=== PATIENT | male | born 1970 | race Caucasian/White ===

== ENCOUNTER 2024-11-14 23:42 | Inpatient (IN) | payer SELFPAY ==
[~2024-11-14] VITALS: Ht 185.4 cm; Wt 130.0 kg
[~2024-11-14 23:42] MED LIST: AMLO1TAB23; CLON0.1T; LISI20TA56 PO
[2024-11-15] VITALS (8 sets, daily range): BP systolic 134–157; BP diastolic 90–106; PULSE 86–102; RESP 16–20; TEMP 97.8–98.2; O2SAT 91–95
--- NOTE | 2024-11-15 | ED.PDOC ---
GI ASSESSMENT HPI Comments 54-year-old male who came to ER for abdominal pain. Patient has history of hypertension, diabetes, small bowel obstruction, diverticulitis, status post multiple bowel resections performed as this facility.. For the past few hours, he has complaining of diffuse abdominal pain with nausea. Denies any changes in bowel habits. Patient was hypertensive on arrival. Chief Complaint: Abdominal Pain Time Seen by MD: 00:00 Primary Care Provider: sage Nagy Notes: Nurses Notes Allergies: Coded Allergies: Acetaminophen (Verified Allergy, Unknown, 06/07/14) Hydrocodone (Verified Allergy, Unknown, 06/07/14) Home Meds Reported Medications [Amlodipine Besy10 Mg] (Amlodipine Besylate) 10 MG TAB No Conflict Check, MG 11/06/12 [Clonidine Hcl0.1 Mg] (Clonidine Hcl) 0.1 MG TAB No Conflict Check, MG 11/06/12 Lisinopril (Lisinopril) 20 Mg Tab, PO DAILY 03/16/11 Information Source: Patient Mode of Arrival: EMS Timing: Hours Duration: Since onset Prehospital treatment: None Quality: Aching Vomitus: None Stool: Normal Severity: Moderate Recent: None Recent Hx of: Abdominal Surgery, Other (Diverticular disease) Pain Location: Diffuse Modifying Factors: Nothing Associated sign and symptoms: Nausea, Abdominal Pain Past Medical History PAST MEDICAL HISTORY: COPD, High Lipids, HTN Past Medical History (Other): Diverticulitis. Small bowel obstruction Surgical History: Cholecystectomy, Hernia Repair Surgical History (Other): Bowel resection Family History Family History: Reviewed,noncontributory to illness Social History Smoker: Cigarettes Alcohol: Rarely Drugs: Denies Drug Use Lives In: Home Constitutional: denies: chills, diaphoresis, fatigue, fever, malaise, sweats, weakness, others EENTM: denies: blurred vision, double vision, ear bleeding, ear discharge, ear drainage, ear pain, ear ringing, eye pain, eye redness, hearing loss, mouth pain, mouth swelling, nasal discharge, nose bleeding, nose congestion, nose pain, photophobia, tearing, throat pain, throat swelling, voice changes, others Respiratory: denies: cough, hemoptysis, orthopnea, SOB at rest, shortness of breath, SOB with excertion, stridor, wheezing, others Cardiovascular: denies: chest pain, dizzy spells, diaphoresis, Dyspnea on exertion, edema, irregular heart beat, left arm pain, lightheadedness, palpitations, PND, syncope, others Gastrointestinal: reports: abdominal pain, nausea; denies: abdomen distended, blood streaked bowels, constipated, diarrhea, dysphagia, difficulty swallowing, hematemesis, melena, poor appetite, poor fluid intake, rectal bleeding, rectal pain, vomiting, others Genitourinary: denies: burning, dysuria, flank pain, frequency, hematuria, incontinence, penile discharge, penile sore, pain, testicle pain, testicle swelling, urgency, others Neurological: denies: dizziness, fainting, headache, left sided numbness, left sided weakness, numbness, paresthesia, pre-existing deficit, right sided numbness, right sided weakness, seizure, speech problems, tingling, tremors, weakness, others Musculoskeletal: denies: back pain, gout, joint pain, joint swelling, muscle pain, muscle stiffness, neck pain, others Integumetry: denies: bruises, change in color, change in hair/nails, dryness, laceration, lesions, lumps, rash, wounds, others Allergic/Immunocompromised: denies: Difficulty Healing, Frequent Infections, H lida, Itching, others Hematologic/Lymphatic: denies: anemia, blood clots, easy bleeding, easy bruising, swollen glands, others Endocrine: denies: excessive hunger, excessive sweating, excessive thirst, excessive urination, flushing, intolerance to cold, intolerance to heat, unexplained weight gain, unexplained weight loss, others Psychiatric: denies: anxiety, bipolar disorder, depression, hopeless, panic disorder, schizophrenia, sleepless, suicidal, others Physical Exam Exam Comments Patient appears to be in poor overall health in his morbidly obese General Appearance: Moderate Distress (Due to diffuse abdominal pain concerns.), Obese HEENT: Normal ENT Inspection, Pharynx Normal, TMs Normal Neck: Full Range of Motion, Non-Tender, Normal, Normal Inspection Respiratory: Chest Non-Tender, Lungs Clear, No Accessory Muscle Use, No Respiratory Distress, Normal Breath Sounds Cardiovascular: No Edema, No JVD, No Murmur, No Gallop, Normal Peripheral Pulses, Regular Rate/Rhythm Breast Exam: Deferred Gastrointestinal: Other (Diffuse abdominal pain that was difficult to assess due to body habitus. Abdomen was mildly rigid but may be his body habitus type. Patient states pain throughout. No pulsatile masses appreciated.) Genitalia: Deferred Pelvic: Deferred Rectal: Deferred Extremities: No calf tenderness, Normal capillary refill, Normal inspection, Normal range of motion, Non-tender, No pedal edema Musculoskeletal : Apperance: Normal Neurologic: Alert, No Motor Deficits, Normal Affect, Normal Mood, No Sensory Deficits Cerebellar Function: Normal Reflexes: Normal Skin: Dry, Normal Color, Warm Lymphatic: No Adenopathy Was a procedure done? Was a procedure done?: No GI differential Dx Differential Diagnosis: Constipation, Diverticular disease, Gastritis/PUD, Gastroenteritis, Inflammatory BD, Ischemic Bowel, Pancreatitis, UTI, Urolithiasis, Food Poisoning X-Ray, Labs, Meds, VS Vital Signs Date Time Temp Pulse Resp B/P (MAP) Pulse Ox O2 Delivery O2 Flow Rate FiO2 11/15/24 01:28 101 14 145/95 11/15/24 01:00 103 14 145/95 11/15/24 00:30 94 11/14/24 23:52 91 11/14/24 23:45 98.1 93 18 167/109 (128) 97 Lab Test 11/15/24 00:59 11/14/24 23:59 Range/Units Troponin I High Sensitivity 3 L 3 L </=54 ng/L White Blood Count 15.0 H 4.4-10.8 10^3/uL Red Blood Count 6.17 H 4.5-5.90 10^6/uL Hemoglobin 19.6 H 13.5-17.5 g/dL Hematocrit 56.1 H 41.0-53.0 % Mean Corpuscular Volume 91.0 80.0-100.0 fL Mean Corpuscular Hemoglobin 31.8 28.0-32.0 pg Mean Corpuscular Hemoglobin Concent 34.9 32.0-36.0 g/dL Red Cell Distribution Width 13.3 11.8-14.3 % Platelet Count 260 140-450 10^3/uL Mean Platelet Volume 8.8 6.9-10.8 fL Neutrophils (%) (Auto) 80.7 H 37.0-80.0 % Lymphocytes (%) (Auto) 10.2 10.0-50.0 % Monocytes (%) (Auto) 7.8 0.0-12.0 % Eosinophils (%) (Auto) 0.9 0.0-7.0 % Basophils (%) (Auto) 0.4 0.0-2.0 % Neutrophils # (Auto) 12.1 H 1.6-8.6 10 ^3/uL Lymphocytes # (Auto) 1.5 0.4-5.4 10 ^3/uL Monocytes # (Auto) 1.2 0-1.3 10 ^3/uL Eosinophils # (Auto) 0.1 0-0.8 10 ^3/uL Basophils # (Auto) 0.1 0-0.2 10 ^3/uL Nucleated Red Blood Cells 0.0 % Sodium Level 133 L 136-145 mmol/L Potassium Level 4.7 3.5-5.1 mmol/L Chloride Level 98 98-107 mmol/L Carbon Dioxide Level 27 20-31 mmol/L Anion Gap 8 5-15 Blood Urea Nitrogen 21 9-23 mg/dL Creatinine 1.13 0.700-1.30 mg/dL Glomerular Filtration Rate Calc 78 >90 mL/min BUN/Creatinine Ratio 18.6 10.0-20.0 Serum Glucose 395 H 74-106 mg/dL Lactic Acid Level 1.2 0.4-2.0 mmol/L Calcium Level 10.4 8.7-10.4 mg/dL Total Bilirubin 0.7 0.2-1.0 mg/dL Aspartate Amino Transferase (AST) 16 13-40 U/L Alanine Aminotransferase (ALT) 24 7-40 U/L Alkaline Phosphatase 122 H 46-116 U/L Total Protein 6.7 5.7-8.2 g/dL Albumin 4.2 3.2-4.8 g/dL Lipase 24 12-53 U/L Current Medications Medications (Trade) Dose Ordered Sig/Roxie Route Start Time Stop Time Status Last Admin Hydromorphone HCl (Dilaudid Injection) 1 mg ONCE ONCE IV 11/15/24 00:00 11/15/24 00:01 NM 11/15/24 01:00 Ondansetron HCl (Zofran) 4 mg ONCE ONCE IV 11/15/24 01:00 11/15/24 01:01 DC 11/15/24 01:28 Amoxicillin/ Clavulanate Potassium (Augmentin Tablet) 875 mg ONCE ONCE PO 11/15/24 01:30 11/15/24 01:31 DC 11/15/24 01:30 Sodium Chloride 1,000 ml @ 200 mls/hr Q5H ONCE IV 11/15/24 01:30 11/15/24 06:29 11/15/24 01:30 Diagnostic Imaging Report : [id number] Signed PATIENT: DEIRDRE HINTON ACCT: [id number] UNIT: [id number] : 1970 LOC: ER ROOM / BED: / AGE / SEX: 54 / M ADM STATUS: REG ER SERVICE [id number] ORDERING PHYSICIAN: LOKESH HOLMAN PAC PROCEDURE(s): ABPL - CT AB PEL WO CON-NO ORAL OR IV REASON: Diffuse abdominal pain ORDER NUMBER(s): [id number], ACCESSION NUMBER(s): [id number] Exam: CT CT AB PEL WO CON-NO ORAL OR IV History: Diffuse abdominal pain Comparison Study: None available at time of dictation. Technique: Multidetector spiral CT of the abdomen was performed from lung bases to pubic symphysis. Imaging was performed without IV contrast. Axial, coronal and sagittal multiplanar reformats were obtained from the axial data set by the technologist. Radiation Dose : 1. Abdomen/Pelvis: CTDIvol 23 mGy, DLP 1683 mGy*cm. Findings: Evaluation of solid organs is limited due to lack of intravenous contrast use. Lung Bases: No acute or significant lung base finding. Normal heart size. No pleural or pericardial effusion. Liver: The liver is normal in size. No focal lesions. Gallbladder and Biliary Tree: Unremarkable Spleen: Unremarkable Pancreas: The pancreas is grossly normal in appearance. Adrenal Glands: Unremarkable Kidneys: Kidneys are grossly normal without calculi or hydronephrosis. Bladder: Grossly unremarkable for degree of distention. Bowel: The stomach is grossly normal in appearance. Postsurgical changes of the sigmoid colon. Multiple fluid-filled loops of small bowel measuring up to 3.6 cm. No definitive transition point. The appendix is not visualized; however, no secondary findings of acute appendicitis identified. Ascites: Absent Lymphadenopathy: No mesenteric, retroperitoneal or periportal lymphadenopathy. Abdominal Wall and Mesentery: Unremarkable. Vasculature: The visualized abdominal aorta is normal in size and caliber. Evaluation of abdominal and pelvic vessels is limited due to lack of intravenous contrast. Pelvic Organs: Unremarkable Musculoskeletal: No aggressive focal bony lesions, acute fractures or dislo cation. IMPRESSION: Multiple distended fluid-filled loops of small bowel measuring up to 3.6 cm without definitive transition point. Findings are concerning for possible small bowel obstruction versus viral enteritis END IMPRESSION: ATED BY: IRENE MERCADO DO DICTATED DATE/TIME: 11/15/24155 SIGNED BY: IRENE MERCADO DO SIGNED DATE/TIME: 11/15/24155 CC: [place] [id number]. He has a small bowel obstruction. The patient was placed on Flagyl and Levaquin. NG tube was placed. Dr. Villar was called. The patient be admitted to the hospitalist for further evaluation and care. X-Ray, Labs, Meds, VS Comment Urinalysis and CT studies were pending at time of this note. Serum laboratories revealed a leukocytosis, hyponatremia and significant hyperglycemia. Patient appears to be suffering from a diverticulitis event. Imaging studies will be reviewed by Dr. Friedman when returned, but patient will be admitted for intractable abdominal pain management she as well as continued evaluation of his probable diverticulitis event. Time of 1ST Reevaluation: :54 Reevaluation 1ST: Improved Consultation: PCP Patient Education/Counseling: Diagnosis, Treatment Family Education/Counseling: Diagnosis, Treatment, No Family Present Departure 1 Departure Time of Disposition: 01:54 Impression: Primary Impression: Intractable abdominal pain Additional Impressions: Small bowel obstruction Enteritis Disposition: ADMITTED INPATIENT Admit to: [facility] Condition: Guarded Discharged With: Self Critical Care Note Critical Care Time?: No Stability Stability form required: No Heart Score Heart Score: Heart Score Response (Comments) Value History N/A 0 EKG N/A 0 Age N/A 0 Risk Factors N/A 0 Troponin N/A 0 Total 0 I personally scribed for LOKESH HOLMAN PAC ([email or web address]) on 11/15/24 at 00:00. Electronically submitted by Renzo Green ([email or web address]). LOKESH HOLMAN Nov 15, 2024 00:00 BUSTER FRIEDMAN MD Nov 15, 2024 02:34
[2024-11-15 00:30] LABS: Basophils # (auto) 0.1 10 ^3/uL (0-0.2); Eosinophils # (auto) 0.1 10 ^3/uL (0-0.8); Eosinophils % (auto) 0.9 % (0.0-7.0); Hemoglobin 19.6 g/dL (13.5-17.5); Lymphocytes # (auto) 1.5 10 ^3/uL (0.4-5.4); Lymphocytes % (auto) 10.2 % (10.0-50.0)
[2024-11-15 00:31] LABS: Basophils % (auto) 0.4 % (0.0-2.0); Mean Corpuscular Hemoglobin 31.8 pg (28.0-32.0); Mean Corpuscular Hgb Conc. 34.9 g/dL (32.0-36.0); Monocytes # (auto) 1.2 10 ^3/uL (0-1.3); Monocytes % (auto) 7.8 % (0.0-12.0); Neutrophils # (auto) 12.1 10 ^3/uL (1.6-8.6); Neutrophils % (auto) 80.7 % (37.0-80.0); Platelet Count (auto) 260 10^3/uL (140-450); Red Blood Cells 6.17 10^6/uL (4.5-5.90); Red Cell Distribution Width 13.3 % (11.8-14.3)
[2024-11-15 00:33] LABS: Hematocrit 56.1 % (41.0-53.0)
[2024-11-15 00:35] LABS: Alanine Aminotransferase 24 U/L (7-40); Albumin 4.2 g/dL (3.2-4.8); Anion Gap 8 (5-15); Aspartate Aminotransferase 16 U/L (13-40); BUN/Creatinine Ratio 18.6 (10.0-20.0); Bilirubin, Total 0.7 mg/dL (0.2-1.0); Blood Urea Nitrogen 21 mg/dL (9-23); Calcium 10.4 mg/dL (8.7-10.4); Carbon Dioxide 27 mmol/L (20-31); Chloride 98 mmol/L (98-107); Lipase 24 U/L (12-53); Potassium 4.7 mmol/L (3.5-5.1); Sodium 133 mmol/L (136-145); Total Protein 6.7 g/dL (5.7-8.2)
[2024-11-15 00:36] LABS: Alkaline Phosphatase 122 U/L (46-116); Glucose 395 mg/dL (74-106)
[2024-11-15] MEDS: HYDROmorphone HCL 2 MG/ML VL/or syr IV ONE ×3 (01:00→02:15)
[2024-11-15] MEDS: ONDANSETRON HCL 4 MG/2 ML VIAL ONE (01:27)
[2024-11-15] MEDS: ONDANSETRON HCL 4 MG/2 ML VIAL IV ONE ×2 (01:28→05:35)
[2024-11-15] MEDS: SODIUM CHLORIDE 0.9% 1,000 ML IV ONE (01:30)
[2024-11-15] MEDS: AMOXICILLIN/CLAVUL 875 MG TAB PO ONE (01:30)
--- NOTE | 2024-11-15 01:59 | DVH ---
Exam: CT CT AB PEL WO CON-NO ORAL OR IV History: Diffuse abdominal pain Comparison Study: None available at time of dictation. Technique: Multidetector spiral CT of the abdomen was performed from lung bases to pubic symphysis. Imaging was performed without IV contrast. Axial, coronal and sagittal multiplanar reformats were ob tained from the axial data set by the technologist. Radiation Dose : 1. Abdomen/Pelvis: CTDIvol 23 mGy, DLP 1683 mGy*cm. Findings: Evaluation of solid organs is limited due to lack of intravenous contrast use. Lung Bases: No acute or significant lung base finding. Normal heart size. No pleural or pericardial effusion. Liver: The liver is normal in size. No focal lesions. Gallbladder and Biliary Tree: Unremarkable Spleen: Unremarkable Pancreas: The pancreas is grossly normal in appearance. Adrenal Glands: Unremarkable Kidneys: Kidneys are grossly normal without calculi or hydronephrosis. Bladder: Grossly unremarkable for degree of distention. Bowel: The stomach is grossly normal in appearance. Postsurgical changes of the sigmoid colon. Multip le fluid-filled loops of small bowel measuring up to 3.6 cm. No definitive transition point. The ap pendix is not visualized; however, no secondary findings of acute appendicitis identified. Ascites: Absent Lymphadenopathy: No mesenteric, retroperitoneal or periportal lymphadenopathy. Abdominal Wall and Mesentery: Unremarkable. Vasculature: The visualized abdominal aorta is normal in size and caliber. Evaluation of abdominal a nd pelvic vessels is limited due to lack of intravenous contrast. Pelvic Organs: Unremarkable Musculoskeletal: No aggressive focal bony lesions, acute fractures or dislocation. IMPRESSION: Multiple distended fluid-filled loops of small bowel measuring up to 3.6 cm without definitive transi tion point. Findings are concerning for possible small bowel obstruction versus viral enteritis END IMPRESSION:
[2024-11-15] MEDS: metroNIDAZOLE 500MG/100ML 100 ML IV ONE ×2 (02:45→10:55)
[2024-11-15] MEDS: levoFLOXacin 500MG 100 ML IV ONE (02:45)
[2024-11-15] MEDS: INSULIN LISPRO (HUMAN) 100 UNITS/ML ML SC ONE (02:52)
[2024-11-15 03:52] LABS: Urine Bacteria None Seen /hpf (None Seen)
[2024-11-15 04:29] LABS: Urine Blood Negative /uL (Negative); Urine Clarity Clear (Clear); Urine Color Light-Yellow (Yellow); Urine Protein, UAD 2+ (Negative); Urine Specific Gravity 1.037 (1.001-1.035); Urine Squamous Epithelial Cell None Seen /hpf (<5); Urine Urobilinogen Normal (Negative); Urine WBC < 1 /HPF (0-3)
[2024-11-15] MEDS: cefTRIAXone 1GM/50ML D5W 50 ML IV ONE (05:30)
[2024-11-15] MEDS: HYDROMORPHONE HCL 1 MG/ML INJ IV ONE (05:33)
--- NOTE | 2024-11-15 07:37 | DVH ---
CHEST RADIOGRAPH Indication: NG TUBED PLACEMENT Technique: Single frontal view of the chest was obtained Comparison: None FINDINGS: Lines and Tubes: Nasogastric tube tip in the stomach Lungs: No focal consolidation. Pleura: No effusion. No pneumothorax. Cardiomediastinal contours: Unremarkable Bones: No acute osseous abnormality. IMPRESSION: No acute cardiopulmonary disease.
--- NOTE | 2024-11-15 10:28 | DVHHP2 ---
History of Present Illness Reason for Visit: Abdominal pain History of Present Illness This 54-year-old male presents in the ED with a chief complaint of abdominal pain. The patient with significant medical history of abdominal surgeries, hernias, diverticulitis, colostomy, SBO, reports abdominal pain associated with nausea and vomiting started yesterday. The patient denies fever, chills, hematemesis, constipation, diarrhea, or melena. Past medical history of hypertension, COPD, hyperlipidemia, obesity, and ex tobacco use Past Medical History As stated in HPI Past Surgical History Cholecystectomy Hernia repair Resection Family History Reviewed, non-contributory to the management of this case. Past Social History The patient lives at home, denies smoking, alcohol or illicit drugs abuse. Review of Systems Constitutional: Yes: Malaise; No: Fever, Chills, Sweats, Weakness, Other Eyes: No: Pain, Vision change, Conjunctivae inflammation, Eyelid inflammation, Other, Redness ENT: No: Ear pain, Ear discharge, Nose pain, Nose discharge, Nose congestion, Mouth pain, Mouth swelling, Throat pain, Throat swelling, Other Respiratory: No: Cough, Dry, Shortness of breath, SOB with excertion, Wheezing, Hemoptysis, Pleuritic Pain, Sputum, Wheezing, Other Cardiovascular: No: Chest Pain, Palpitations, Orthopnea, Paroxysmal Noc. Dyspnea, Edema, Lt Headedness, Other Gastrointestinal: Nausea, Vomiting, Abdominal Pain; No: Diarrhea, Constipation, Melena, Hematochezia, Other Genitourinary: No Dysuria, No Frequency, No Incontinence, No Hematuria, No Retention, No Other Musculoskeletal: No: other, neck pain, shoulder pain, arm pain, back pain, hand pain, leg pain, foot pain Skin: No: Rash, Lesions, Jaundice, Bruising, Other Allergies: Coded Allergies: Acetaminophen (Verified Allergy, Unknown, 06/07/14) Hydrocodone (Verified Allergy, Unknown, 06/07/14) Exam Vital Signs Vital Signs Date Time Temp Pulse Resp B/P (MAP) Pulse Ox O2 Delivery O2 Flow Rate FiO2 11/15/24 06:05 98 14 143/84 11/14/24 23:45 98.1 97 General Appearance: Alert, Oriented X3, Cooperative, mild distress HEENT: Atraumatic, EOMI, Mucous membr. moist/pink Respiratory: Clear to auscultation, Normal air movement Cardiovascular: Regular rate, Normal S1, Normal S2 Abdominal: Soft, Other (Tenderness in palpation) Extremities: No clubbing, No cyanosis, No edema, Normal pulses Skin: No rashes, No breakdown, No significant lesion Neuro: Normal gait, Normal speech, Strength at 5/5 X4 ext Psych/Mental Status: Mental status NL Labs/Xrays Labs Test 11/15/24 01:34 11/15/24 00:59 11/14/24 23:59 Range/Units Urine Color Light-yellow Yellow Urine Clarity Clear Clear Urine pH 6.0 5.0-9.0 Urine Specific Pratts 1.037 H 1.001-1.035 Urine Protein 2+ H Negative Urine Ketones 1+ H Negative Urine Blood Negative Negative /uL Urine Nitrite Negative Negative Urine Bilirubin Negative Negative Urine Urobilinogen Normal Negative mg/dL Urine Leukocyte Esterase Negative Negative /uL Urine RBC <1 0 - 3 /hpf Urine Microscopic WBC < 1 0-3 /HPF Urine Squamous Epithelial Cells None seen <5 /hpf Urine Bacteria None seen None Seen /hpf Urine Glucose 4+ H Normal mg/dL Troponin I High Sensitivity 3 L </=54 ng/L White Blood Count 15.0 H 4.4-10.8 10^3/uL Red Blood Count 6.17 H 4.5-5.90 10^6/uL Hemoglobin 19.6 H 13.5-17.5 g/dL Hematocrit 56.1 H 41.0-53.0 % Mean Corpuscular Volume 91.0 80.0-100.0 fL Mean Corpuscular Hemoglobin 31.8 28.0-32.0 pg Mean Corpuscular Hemoglobin Concent 34.9 32.0-36.0 g/dL Red Cell Distribution Width 13.3 11.8-14.3 % Platelet Count 260 140-450 10^3/uL Mean Platelet Volume 8.8 6.9-10.8 fL Neutrophils (%) (Auto) 80.7 H 37.0-80.0 % Lymphocytes (%) (Auto) 10.2 10.0-50.0 % Monocytes (%) (Auto) 7.8 0.0-12.0 % Eosinophils (%) (Auto) 0.9 0.0-7.0 % Basophils (%) (Auto) 0.4 0.0-2.0 % Neutrophils # (Auto) 12.1 H 1.6-8.6 10 ^3/uL Lymphocytes # (Auto) 1.5 0.4-5.4 10 ^3/uL Monocytes # (Auto) 1.2 0-1.3 10 ^3/uL Eosinophils # (Auto) 0.1 0-0.8 10 ^3/uL Basophils # (Auto) 0.1 0-0.2 10 ^3/uL Nucleated Red Blood Cells 0.0 % Sodium Level 133 L 136-145 mmol/L Potassium Level 4.7 3.5-5.1 mmol/L Chloride Level 98 98-107 mmol/L Carbon Dioxide Level 27 20-31 mmol/L Anion Gap 8 5-15 Blood Urea Nitrogen 21 9-23 mg/dL Creatinine 1.13 0.700-1.30 mg/dL Glomerular Filtration Rate Calc 78 >90 mL/min BUN/Creatinine Ratio 18.6 10.0-20.0 Serum Glucose 395 H 74-106 mg/dL Lactic Acid Level 1.2 0.4-2.0 mmol/L Calcium Level 10.4 8.7-10.4 mg/dL Total Bilirubin 0.7 0.2-1.0 mg/dL Aspartate Amino Transferase (AST) 16 13-40 U/L Alanine Aminotransferase (ALT) 24 7-40 U/L Alkaline Phosphatase 122 H 46-116 U/L Total Protein 6.7 5.7-8.2 g/dL Albumin 4.2 3.2-4.8 g/dL Lipase 24 12-53 U/L PROCEDURE(s): ABPL - CT AB PEL WO CON-NO ORAL OR IV REASON: Diffuse abdominal pain ORDER NUMBER(s): [id number], ACCESSION NUMBER(s): [id number] Exam: CT CT AB PEL WO CON-NO ORAL OR IV History: Diffuse abdominal pain Comparison Study: None available at time of dictation. Technique: Multidetector spiral CT of the abdomen was performed from lung bases to pubic symphysis. Imaging was performed without IV contrast. Axial, coronal and sagittal multiplanar reformats were obtained from the axial data set by the technologist. Radiation Dose : 1. Abdomen/Pelvis: CTDIvol 23 mGy, DLP 1683 mGy*cm. Findings: Evaluation of solid organs is limited due to lack of intravenous contrast use. Lung Bases: No acute or significant lung base finding. Normal heart size. No pleural or pericardial effusion. Liver: The liver is normal in size. No focal lesions. Gallbladder and Biliary Tree: Unremarkable Spleen: Unremarkable Pancreas: The pancreas is grossly normal in appearance. Adrenal Glands: Unremarkable Kidneys: Kidneys are grossly normal without calculi or hydronephrosis. Bladder: Grossly unremarkable for degree of distention. Bowel: The stomach is grossly normal in appearance. Postsurgical changes of the sigmoid colon. Multiple fluid-filled loops of small bowel measuring up to 3.6 cm. No definitive transition point. The appendix is not visualized; however, no secondary findings of acute appendicitis identified. Ascites: Absent Lymphadenopathy: No mesenteric, retroperitoneal or periportal lymphadenopathy. Abdominal Wall and Mesentery: Unremarkable. Vasculature: The visualized abdominal aorta is normal in size and caliber. Evaluation of abdominal and pelvic vessels is limited due to lack of intravenous contrast. Pelvic Organs: Unremarkable Musculoskeletal: No aggressive focal bony lesions, acute fractures or dislocation. IMPRESSION: Multiple distended fluid-filled loops of small bowel measuring up to 3.6 cm without definitive transition point. Findings are concerning for possible small bowel obstruction versus viral enteritis Assessment/Plan Assessment/Plan # Acute abdominal pain to rule out small-bowel obstruction # possible enteritis # hx of SBO # hx of multiple abdominal hernias s/p colostomy # hx diverticulitis # nausea and vomiting Admit to medical-surgical unit Surgical consult for evaluation of possible SBO Small-bowel series pending NG tube to low intermittent suction IV fluid Empiric antibiotic ceftriaxone and metronidazole NPO except for meds Antiemetics # hypertension continue amlodipine, lisinopril Hydralazine as needed Monitor BP # hyperglycemia Insulin sliding scale Check A1c # hyperlipidemia Check lipid panel # COPD # hx of tobacco abuse, quit three weeks ago Med neb # morbid obesity Lifestyle modification counseled with diet, regular exercise, and weight loss Check TSH DVT prophylaxis with SCD Medical plan discussed with patient Plan discussed with: Patient Date of Service: Nov 15, 2024 Billing Provider: ROMEO BURNETT Common Visit Codes: 25201-[id number] INP/OBS CARE (HIGH) ROMEO BURNETT Nov 15, 2024 10:28
[2024-11-15] MEDS ORDERED: ONDANSETRON HCL 4 MG/2 ML VIAL IV PRN (10:30)
[2024-11-15] MEDS ORDERED: DEXTROSE (50%) 50ML SYRG IV PRN (10:45)
[2024-11-15] MEDS ORDERED: hydrALAZINE HCL 20 MG/ML VL IV PRN (10:45)
[2024-11-15] MEDS ORDERED: ALBUTEROL SULF 2.5 MG/0.5ML(0.5%) NEB SOLN NEB PRN (10:45)
[2024-11-15] MEDS: SODIUM CHLORIDE 0.9% 1,000 ML IV SCH (10:55)
--- NOTE | 2024-11-15 11:31 | DVHINCON2 ---
Date of service: Nov 15, 2024 Allergies: Coded Allergies: Acetaminophen (Verified Allergy, Unknown, 06/07/14) Hydrocodone (Verified Allergy, Unknown, 06/07/14) Home Meds Reported Medications [Amlodipine Besy10 Mg] (Amlodipine Besylate) 10 MG TAB No Conflict Check, MG 11/06/12 [Clonidine Hcl0.1 Mg] (Clonidine Hcl) 0.1 MG TAB No Conflict Check, MG 11/06/12 Lisinopril (Lisinopril) 20 Mg Tab, PO DAILY 03/16/11 Current Medications Current Medications Medications (Trade) Dose Ordered Sig/Roxie Route PRN Reason Start Time Stop Time Status Last Admin Sodium Chloride 1,000 ml @ 100 mls/hr Q10H IV 11/15/24 10:30 11/15/24 10:55 Ondansetron HCl (Zofran) 4 mg Q4HP PRN IV NAUSEA / VOMITING 11/15/24 10:30 Metronidazole 100 ml @ 100 mls/hr Q8HR IV 11/15/24 22:00 Ceftriaxone Sodium 50 ml @ 100 mls/hr DAILY@09 IV 11/16/24 09:00 Diagnostic Test (Pha) (Accu-Chek Comfort Curve T) 1 strip Q6HR 11/15/24 12:00 Insulin Human Regular (InsuLIN R) Q6HR SC 11/15/24 12:00 Dextrose 50 ml UD PRN IV Blood Sugar LESS THAN 60 11/15/24 10:45 Hydralazine HCl (Apresoline Injection) 10 mg Q6HP PRN IV SBP>150 11/15/24 10:45 Lisinopril (Zestril Tablet) 10 mg DAILY PO 11/16/24 10:00 Amlodipine Besylate (Norvasc Tablet) 10 mg DAILY PO 11/16/24 10:00 Albuterol (Ventolin Medneb) 2.5 mg Q4HPRN PRN NEB SHORTNESS OF BREATH 11/15/24 10:45 Ipratropium [place] (Atrovent Medneb) 0.5 mg Q4HR PRN NEB SHORTNESS OF BREATH 11/15/24 14:00 Ipratropium [place] (Atrovent Medneb) 0.5 mg Q6HR NEB 11/15/24 12:00 Albuterol (Ventolin Medneb) 2.5 mg Q6HR NEB 11/15/24 12:00 Vital Signs Vital Signs Date Time Temp Pulse Resp B/P (MAP) Pulse Ox O2 Delivery O2 Flow Rate FiO2 11/15/24 10:49 98.2 102 16 140/90 94 3.0 32 98.2 11/15/24 00:45 Nasal Cannula* Labs/Diagnostic Data Labs Test 11/15/24 01:34 11/15/24 00:59 11/14/24 23:59 Range/Units Urine Color Light-yellow Yellow Urine Clarity Clear Clear Urine pH 6.0 5.0-9.0 Urine Specific [place] 1.037 H 1.001-1.035 Urine Protein 2+ H Negative Urine Ketones 1+ H Negative Urine Blood Negative Negative /uL Urine Nitrite Negative Negative Urine Bilirubin Negative Negative Urine Urobilinogen Normal Negative mg/dL Urine Leukocyte Esterase Negative Negative /uL Urine RBC <1 0 - 3 /hpf Urine Microscopic WBC < 1 0-3 /HPF Urine Squamous Epithelial Cells None seen <5 /hpf Urine Bacteria None seen None Seen /hpf Urine Glucose 4+ H Normal mg/dL Troponin I High Sensitivity 3 L </=54 ng/L White Blood Count 15.0 H 4.4-10.8 10^3/uL Red Blood Count 6.17 H 4.5-5.90 10^6/uL Hemoglobin 19.6 H 13.5-17.5 g/dL Hematocrit 56.1 H 41.0-53.0 % Mean Corpuscular Volume 91.0 80.0-100.0 fL Mean Corpuscular Hemoglobin 31.8 28.0-32.0 pg Mean Corpuscular Hemoglobin Concent 34.9 32.0-36.0 g/dL Red Cell Distribution Width 13.3 11.8-14.3 % Platelet Count 260 140-450 10^3/uL Mean Platelet Volume 8.8 6.9-10.8 fL Neutrophils (%) (Auto) 80.7 H 37.0-80.0 % Lymphocytes (%) (Auto) 10.2 10.0-50.0 % Monocytes (%) (Auto) 7.8 0.0-12.0 % Eosinophils (%) (Auto) 0.9 0.0-7.0 % Basophils (%) (Auto) 0.4 0.0-2.0 % Neutrophils # (Auto) 12.1 H 1.6-8.6 10 ^3/uL Lymphocytes # (Auto) 1.5 0.4-5.4 10 ^3/uL Monocytes # (Auto) 1.2 0-1.3 10 ^3/uL Eosinophils # (Auto) 0.1 0-0.8 10 ^3/uL Basophils # (Auto) 0.1 0-0.2 10 ^3/uL Nucleated Red Blood Cells 0.0 % Sodium Level 133 L 136-145 mmol/L Potassium Level 4.7 3.5-5.1 mmol/L Chloride Level 98 98-107 mmol/L Carbon Dioxide Level 27 20-31 mmol/L Anion Gap 8 5-15 Blood Urea Nitrogen 21 9-23 mg/dL Creatinine 1.13 0.700-1.30 mg/dL Glomerular Filtration Rate Calc 78 >90 mL/min BUN/Creatinine Ratio 18.6 10.0-20.0 Serum Glucose 395 H 74-106 mg/dL Lactic Acid Level 1.2 0.4-2.0 mmol/L Calcium Level 10.4 8.7-10.4 mg/dL Total Bilirubin 0.7 0.2-1.0 mg/dL Aspartate Amino Transferase (AST) 16 13-40 U/L Alanine Aminotransferase (ALT) 24 7-40 U/L Alkaline Phosphatase 122 H 46-116 U/L Total Protein 6.7 5.7-8.2 g/dL Albumin 4.2 3.2-4.8 g/dL Lipase 24 12-53 U/L Assessment 54 year old male who had multiple abdominal wall hernia repairs now coming to the ER with/o abdominal pain and nausea, was found to have some dilated loops of bowel on imaging,abdomen soft, non distended non tender, had a bowel movement this morning and is passing flatus. small bowel series with gastrografin pending. will follow Plan discussed with: Patient KATHY WEBB MD Nov 15, 2024 11:31
[2024-11-15] MEDS: ALBUTEROL SULF 2.5 MG/0.5ML(0.5%) NEB SOLN NEB SCH (11:35)
[2024-11-15] MEDS: IPRATROPIUM BROM 0.5 MG/2.5ML INH SOL NEB SCH (11:35)
[2024-11-15 12:15] LABS: Triglycerides 291 mg/dL (< 150)
[2024-11-15 12:17] LABS: Cholesterol 245 mg/dL (< 200); HDL Cholesterol 39 mg/dL (40-59); LDL Cholesterol 162 mg/dL (< 100)
[2024-11-15] MEDS: ACCU-CHEK COMFORT CURVE STRIP VI SCH (12:36)
[2024-11-15] MEDS: HYDROmorphone HCL 2 MG/ML VL/or syr IV PRN (12:56)
[2024-11-15] MEDS: InsuLIN REG 1unit/0.01ml Soln (100units/ml) SC SCH (12:57)
[2024-11-15] MEDS ORDERED: IPRATROPIUM BROM 0.5 MG/2.5ML INH SOL NEB PRN (14:00)
[2024-11-15] MEDS: metroNIDAZOLE 500MG/100ML 100 ML IV SCH (23:11)
[2024-11-16] VITALS (16 sets, daily range): BP systolic 117–191; BP diastolic 59–102; PULSE 64–97; RESP 16–21; TEMP 97.9–98.6; O2SAT 90–98
[2024-11-16 07:21] LABS: Basophils # (auto) 0 10 ^3/uL (0-0.2); Basophils % (auto) 0.4 % (0.0-2.0); Eosinophils # (auto) 0.3 10 ^3/uL (0-0.8); Eosinophils % (auto) 3.9 % (0.0-7.0); Hemoglobin 18.1 g/dL (13.5-17.5); Lymphocytes # (auto) 1.4 10 ^3/uL (0.4-5.4); Mean Corpuscular Hgb Conc. 34.2 g/dL (32.0-36.0); Mean Corpuscular Volume 93.6 fL (80.0-100.0); Monocytes # (auto) 0.8 10 ^3/uL (0-1.3); Monocytes % (auto) 9.5 % (0.0-12.0); Neutrophils # (auto) 5.8 10 ^3/uL (1.6-8.6); Neutrophils % (auto) 69.2 % (37.0-80.0); Nucleated Red Blood Cells % 0.1 %; Platelet Count (auto) 237 10^3/uL (140-450); Red Blood Cells 5.66 10^6/uL (4.5-5.90); Red Cell Distribution Width 13.4 % (11.8-14.3); White Blood Cell 8.4 10^3/uL (4.4-10.8)
[2024-11-16 07:46] LABS: Alanine Aminotransferase 22 U/L (7-40); Alkaline Phosphatase 100 U/L (46-116); Anion Gap 7 (5-15); Aspartate Aminotransferase 22 U/L (13-40); BUN/Creatinine Ratio 17.4 (10.0-20.0); Blood Urea Nitrogen 16 mg/dL (9-23); Calcium 9.3 mg/dL (8.7-10.4); Carbon Dioxide 30 mmol/L (20-31); Chloride 99 mmol/L (98-107); Potassium 4.2 mmol/L (3.5-5.1); Sodium 136 mmol/L (136-145)
[2024-11-16 07:47] LABS: Bilirubin, Total 1.1 mg/dL (0.2-1.0)
[2024-11-16 07:48] LABS: Glucose 275 mg/dL (74-106); Total Protein 6.4 g/dL (5.7-8.2)
--- NOTE | 2024-11-16 08:14 | DVHPN2 ---
Progress Note - Surgical Date Seen: Nov 16, 2024 Post op day Post op day: 0 Subjective Patient reports: No new complaints, Feels better Review of Systems: HEENT:Normal, CVS:Normal, RESPIRATORY:Normal, GI:Normal, :Normal, MSK:Normal, NEURO:Normal Objective Vital signs Vital Sign Date Time Temp Pulse Resp B/P (MAP) Pulse Ox O2 Delivery O2 Flow Rate FiO2 11/16/24 06:39 90 16 97 11/16/24 06:34 Nasal Cannula 2.0 11/16/24 06:34 28 11/16/24 05:00 98.6 151/102 (118) 98.6 Total Intake and Output 11/15/24 11/15/24 11/16/24 15:00 23:00 07:00 Intake Total 200 ml 950 ml Output Total 1000 ml 300 ml 125 ml Balance -800 ml -300 ml 825 ml Medications Current Medications Medications Dose Ordered Sig/Roxie Route Start Time Stop Time Status Last Admin Dose Admin Sodium Chloride 1,000 ml @ 100 mls/hr Q10H IV 11/15/24 10:30 11/16/24 06:24 100 MLS/HR Ondansetron HCl 4 mg Q4HP PRN IV 11/15/24 10:30 Metronidazole 100 ml @ 100 mls/hr Q8HR IV 11/15/24 22:00 11/16/24 06:19 100 MLS/HR Ceftriaxone Sodium 50 ml @ 100 mls/hr DAILY@09 IV 11/16/24 09:00 Diagnostic Test (Pha) 1 strip Q6HR 11/15/24 12:00 11/16/24 06:24 1 STRIP Insulin Human Regular Q6HR SC 11/15/24 12:00 11/16/24 06:20 6 UNITS Dextrose 50 ml UD PRN IV 11/15/24 10:45 Hydralazine HCl 10 mg Q6HP PRN IV 11/15/24 10:45 Lisinopril 10 mg DAILY PO 11/16/24 10:00 Amlodipine Besylate 10 mg DAILY PO 11/16/24 10:00 Albuterol 2.5 mg Q4HPRN PRN NEB 11/15/24 10:45 Ipratropium [place] 0.5 mg Q4HR PRN NEB 11/15/24 14:00 Ipratropium [place] 0.5 mg Q6HR NEB 11/15/24 12:00 11/16/24 06:34 0.5 MG Albuterol 2.5 mg Q6HR NEB 11/15/24 12:00 11/16/24 06:34 2.5 MG Hydromorphone HCl 0.5 mg Q4HPRN PRN IV 11/15/24 11:30 11/16/24 03:02 0.5 MG Laboratory Laboratory Tests 11/16/24 06:42 Test 11/16/24 06:42 Range/Units Serum Glucose 275 #H 74-106 mg/dL Examination: GENERAL:Normal, HEENT:Normal, NECK:Normal, LUNGS:Normal, CVS:Normal, ABDOMEN:Abnormal (slightly firm), SKIN:Normal Problem List/Assessment/Plan Assessment and Plan notes reviewed and discussed with Dr. Wong no new complaints patient abdomen slightly firm, non distended, denies nausea, vomiting, passing gas no bowel movement today DC NGT NPO except ice chips, possibly advance to clear liquids later today My Orders My Orders Orders - GEOFFREY IRWIN NP Procedure Category Date Status Time Discontinue Ng ORDERS 11/16/24 Verified 08:08 Npo Except Ice Chips ORDERS 11/16/24 Verified 08:08 Plan discussed with Plan discussed with: Patient, Other (Dr. Wong ) Visit Coding Surgery Date of Service if different f: Nov 16, 2024 Billing Provider: KATHY WONG MD Surgery Visit Codes: [id number] INP/OBS CARE(HIGH) GEOFFREY IRWIN NP Nov 16, 2024 08:14
[2024-11-16] MEDS: cefTRIAXone 1GM/50ML D5W 50 ML IV SCH (08:39)
[2024-11-16] MEDS: amLODIPine BESYLATE 5 MG TAB PO SCH (08:41)
[2024-11-16] MEDS: LISINOPRIL 20 MG TAB PO SCH (08:41)
[2024-11-16] MEDS: LISINOPRIL 5 MG TAB PO ONE (10:00)
[2024-11-16] MEDS ORDERED: LISINOPRIL 20 MG TAB PO SCH (10:00)
--- NOTE | 2024-11-16 12:59 | ECG ---
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
[2024-11-16] MEDS ORDERED: GASTROGRAFIN 120 ML SOL ONE (14:01)
--- NOTE | 2024-11-16 14:09 | DVHPNRES ---
Progress Note Date Seen: Nov 16, 2024 Resident Creating Document: SHABBIR DAY RESIDENT Has the PT tested + for MRSA If YES, has PT been informed?: No Medical Necessity Reason Pt with a Central, PICC or Fol: No Subjective Review of Systems This 54-year-old male presents in the ED with a chief complaint of abdominal pain. 2 bowel movements yesterday, no emesis The patient with significant medical history of abdominal surgeries, hernias, diverticulitis, colostomy, SBO, reports abdominal pain associated with nausea and vomiting started yesterday. The patient denies fever, chills, hematemesis, constipation, diarrhea, or melena. Past medical history of hypertension, COPD, hyperlipidemia, obesity, and ex tobacco use Objective vital signs Vital Sign Date Time Temp Pulse Resp B/P (MAP) Pulse Ox O2 Delivery O2 Flow Rate FiO2 11/16/24 12:05 95 16 98 11/16/24 11:59 Room Air 0.0 11/16/24 11:59 21 11/16/24 11:56 126/88 11/16/24 08:57 98.6 98.6 Total Intake and Output 11/15/24 11/15/24 11/16/24 15:00 23:00 07:00 Intake Total 200 ml 950 ml Output Total 1000 ml 300 ml 125 ml Balance -800 ml -300 ml 825 ml medications Current Medications Medications Dose Ordered Sig/Roxie Route Start Time Stop Time Status Last Admin Dose Admin Sodium Chloride 1,000 ml @ 100 mls/hr Q10H IV 11/15/24 10:30 11/16/24 06:24 100 MLS/HR Ondansetron HCl 4 mg Q4HP PRN IV 11/15/24 10:30 Metronidazole 100 ml @ 100 mls/hr Q8HR IV 11/15/24 22:00 11/16/24 13:21 100 MLS/HR Ceftriaxone Sodium 50 ml @ 100 mls/hr DAILY@09 IV 11/16/24 09:00 11/16/24 08:39 100 MLS/HR Diagnostic Test (Pha) 1 strip Q6HR 11/15/24 12:00 11/16/24 12:25 1 STRIP Insulin Human Regular Q6HR SC 11/15/24 12:00 11/16/24 12:24 4 UNITS Dextrose 50 ml UD PRN IV 11/15/24 10:45 Hydralazine HCl 10 mg Q6HP PRN IV 11/15/24 10:45 Amlodipine Besylate 10 mg DAILY PO 11/16/24 10:00 11/16/24 08:41 10 MG Albuterol 2.5 mg Q4HPRN PRN NEB 11/15/24 10:45 Ipratropium [place] 0.5 mg Q4HR PRN NEB 11/15/24 14:00 Ipratropium [place] 0.5 mg Q6HR NEB 11/15/24 12:00 11/16/24 11:59 0.5 MG Albuterol 2.5 mg Q6HR NEB 11/15/24 12:00 11/16/24 11:59 2.5 MG Hydromorphone HCl 0.5 mg Q4HPRN PRN IV 11/15/24 11:30 11/16/24 11:26 0.5 MG Insulin Glargine 20 units HS SC 11/16/24 22:00 Atorvastatin Calcium 40 mg HS PO 11/16/24 22:00 Lisinopril 20 mg DAILY PO 11/17/24 10:00 Examination General Appearance: Alert, Oriented X3, Cooperative, mild distress HEENT: Atraumatic, EOMI, Mucous membr. moist/pink Respiratory: Clear to auscultation, Normal air movement Cardiovascular: Regular rate, Normal S1, Normal S2 Abdominal: obese, non tender at palpation Extremities: No clubbing, No cyanosis, No edema, Normal pulses Skin: No rashes, No breakdown, No significant lesion Neuro: Normal gait, Normal speech, Strength at 5/5 X4 ext Psych/Mental Status: Mental status NL laboratory and microbiology Laboratory Tests 11/16/24 06:42 Test 11/16/24 06:42 Range/Units Serum Glucose 275 #H 74-106 mg/dL Problem List/Assessment/Plan Problem List/Assessment/Plan # Acute abdominal pain to rule out small-bowel obstruction # possible acute gastroenteritis # hx of SBO # hx of multiple abdominal hernias s/p colostomy # hx diverticulitis Admit to medical-surgical unit Surgical consult for evaluation of possible SBO: pending gastrografin bowel series IV fluid Empiric antibiotic ceftriaxone and metronidazole NPO, Antiemetics # hypertension continue amlodipine, lisinopril Monitor BP # New onset DM type 2 Hba1c 12 Lantus 20 UI Insulin sliding scale Probably DC with PO meds # hyperlipidemia Atorvastatin 40mg # COPD controlled # hx of tobacco abuse, quit three weeks ago # morbid obesity Lifestyle modification counseled with diet, regular exercise, and weight loss TSH: normal DVT prophylaxis with enoxaparin Medical plan discussed with patient Case discussed with Dr Llanos Time spent on care 23 min Plan discussed with: Patient, Other (rn) My Orders My Orders Orders - SHABBIR DAY Procedure Category Date Status Time Insulin Lantus PHA 11/16/24 In Process (Glargine) (Lantus) 22:00 Atorvastatin (Lipitor) PHA 11/16/24 In Process 22:00 Lisinopril Tablet PHA 11/17/24 In Process (Zestril Tablet) 10:00 SHABBIR DAY RESIDENT Nov 16, 2024 14:09
--- NOTE | 2024-11-16 17:51 | DVH ---
Procedure: XY SMALL BOWEL SERIES-W GASTROGRA Reason for study/Clinical History: sbo Comparison Study: None available at time of dictation. Technique: Single contrast small bowel series performed. FINDINGS/IMPRESSION: Initial assembly manager view of the abdomen and pelvis appears demonstrates no acute process. Contrast is identified within the colon by 3.5 hours. This represents a normal small bowel transit t alicia.
[2024-11-16] MEDS: ATORVASTATIN 20 MG TAB PO SCH (21:30)
[2024-11-16] MEDS: ENOXAPARIN SOD 40 MG/0.4 ML SYRINGE SC SCH (21:31)
[2024-11-16] MEDS: INSULIN LANTUS (GLARGINE) 1 /0.01ml (100units/ml) SC SCH (22:00)
[2024-11-17] VITALS (13 sets, daily range): BP systolic 122–128; BP diastolic 63–78; PULSE 68–91; RESP 14–20; TEMP 97.6–97.9; O2SAT 89–99
[2024-11-17 07:36] LABS: Basophils # (auto) 0 10 ^3/uL (0-0.2); Basophils % (auto) 0.5 % (0.0-2.0); Eosinophils # (auto) 0.2 10 ^3/uL (0-0.8); Eosinophils % (auto) 3.3 % (0.0-7.0); Hematocrit 50.3 % (41.0-53.0); Hemoglobin 17.3 g/dL (13.5-17.5); Lymphocytes # (auto) 1.6 10 ^3/uL (0.4-5.4); Mean Corpuscular Hemoglobin 31.8 pg (28.0-32.0); Mean Corpuscular Hgb Conc. 34.4 g/dL (32.0-36.0); Mean Corpuscular Volume 92.4 fL (80.0-100.0); Monocytes # (auto) 0.8 10 ^3/uL (0-1.3); Monocytes % (auto) 11.7 % (0.0-12.0); Neutrophils # (auto) 4.3 10 ^3/uL (1.6-8.6); Neutrophils % (auto) 61.5 % (37.0-80.0); Platelet Count (auto) 197 10^3/uL (140-450); Red Blood Cells 5.45 10^6/uL (4.5-5.90); Red Cell Distribution Width 13.5 % (11.8-14.3)
[2024-11-17 07:52] LABS: Alanine Aminotransferase 19 U/L (7-40); Albumin 3.7 g/dL (3.2-4.8); Alkaline Phosphatase 89 U/L (46-116); Anion Gap 8 (5-15); Aspartate Aminotransferase 14 U/L (13-40); BUN/Creatinine Ratio 16.9 (10.0-20.0); Blood Urea Nitrogen 14 mg/dL (9-23); Calcium 9.7 mg/dL (8.7-10.4); Carbon Dioxide 29 mmol/L (20-31); Chloride 98 mmol/L (98-107); Total Protein 6.2 g/dL (5.7-8.2)
[2024-11-17 08:08] LABS: Glucose 215 mg/dL (74-106); Sodium 135 mmol/L (136-145)
[2024-11-17] MEDS: LISINOPRIL 20 MG TAB PO SCH (09:31)
[2024-11-17] MEDS ORDERED: ENOXAPARIN SOD 80 MG/0.8ML SYRINGE SC SCH (10:00)
[2024-11-17] MEDS ORDERED: SITA50TA PO (10:22)
[2024-11-17] MEDS ORDERED: GLIP5TAB21 PO (10:22)
[2024-11-17] MEDS ORDERED: METF-370 PO (10:22)
--- NOTE | 2024-11-17 12:18 | DVHPN2 ---
Progress Note Date Seen: Nov 17, 2024 Has the PT tested + for MRSA If YES, has PT been informed?: No Medical Necessity Reason Pt with a Central, PICC or Fol: No Objective vital signs Vital Sign Date Time Temp Pulse Resp B/P (MAP) Pulse Ox O2 Delivery O2 Flow Rate FiO2 11/17/24 11:16 82 14 97 11/17/24 11:04 97.6 11/17/24 10:00 Room Air* 0 21 11/17/24 09:38 122/63 (82) Total Intake and Output 11/16/24 11/16/24 11/17/24 15:00 23:00 07:00 Intake Total 150 ml 775 ml 900 ml Balance 150 ml 775 ml 900 ml medications Current Medications Medications Dose Ordered Sig/Roxie Route Start Time Stop Time Status Last Admin Dose Admin Sodium Chloride 1,000 ml @ 100 mls/hr Q10H IV 11/15/24 10:30 11/16/24 16:30 100 MLS/HR Ondansetron HCl 4 mg Q4HP PRN IV 11/15/24 10:30 Metronidazole 100 ml @ 100 mls/hr Q8HR IV 11/15/24 22:00 11/17/24 06:02 100 MLS/HR Ceftriaxone Sodium 50 ml @ 100 mls/hr DAILY@09 IV 11/16/24 09:00 11/17/24 09:30 100 MLS/HR Diagnostic Test (Pha) 1 strip Q6HR 11/15/24 12:00 11/17/24 06:02 1 STRIP Insulin Human Regular Q6HR SC 11/15/24 12:00 11/17/24 06:11 4 UNITS Dextrose 50 ml UD PRN IV 11/15/24 10:45 Hydralazine HCl 10 mg Q6HP PRN IV 11/15/24 10:45 Amlodipine Besylate 10 mg DAILY PO 11/16/24 10:00 11/17/24 09:31 10 MG Albuterol 2.5 mg Q4HPRN PRN NEB 11/15/24 10:45 Ipratropium [place] 0.5 mg Q4HR PRN NEB 11/15/24 14:00 Ipratropium [place] 0.5 mg Q6HR NEB 11/15/24 12:00 11/17/24 11:07 0.5 MG Albuterol 2.5 mg Q6HR NEB 11/15/24 12:00 11/17/24 11:07 2.5 MG Hydromorphone HCl 0.5 mg Q4HPRN PRN IV 11/15/24 11:30 11/17/24 06:04 0.5 MG Insulin Glargine 20 units HS SC 11/16/24 22:00 11/16/24 22:00 20 UNITS Atorvastatin Calcium 40 mg HS PO 11/16/24 22:00 11/16/24 21:30 40 MG Lisinopril 20 mg DAILY PO 11/17/24 10:00 11/17/24 09:31 20 MG Enoxaparin Sodium 40 mg BID SC 11/16/24 22:00 11/17/24 09:32 40 MG laboratory and microbiology Laboratory Tests 11/17/24 06:29 Test 11/17/24 06:29 Range/Units Serum Glucose 215 H 74-106 mg/dL Problem List/Assessment/Plan Problem List/Assessment/Plan 11/17/24 DOING WELL. NO PAIN, NO NAUSEA, ABDOMEN SOFT NON DISTENDED, NON TENDER. NO NAUSEA, CLEARED FOR DISCHARGE Plan discussed with: Patient, Spouse KATHY WEBB MD Nov 17, 2024 12:18
[2024-11-17] MEDS ORDERED: BLOO1KIT60 XX (12:44)
[2024-11-17] MEDS ORDERED: LANCKIT12 XX (12:44)
--- NOTE | 2024-11-17 13:36 | DVHDSRES ---
Discharge Summary Date of Admission Resident Creating Document: SHABBIR DAY RESIDENT Nov 15, 2024 at 10:26 Date of Discharge: Nov 17, 2024 Admitting Diagnosis # Acute abdominal pain to rule out small-bowel obstruction Labs/Diagnostic Data: Laboratory Results Test 11/17/24 06:29 11/17/24 05:50 11/15/24 11:32 11/15/24 01:34 White Blood Count 7.0 10^3/uL (4.4-10.8) Red Blood Count 5.45 10^6/uL (4.5-5.90) Hemoglobin 17.3 g/dL (13.5-17.5) Hematocrit 50.3 % (41.0-53.0) Mean Corpuscular Volume 92.4 fL (80.0-100.0) Mean Corpuscular Hemoglobin 31.8 pg (28.0-32.0) Mean Corpuscular Hemoglobin Concent 34.4 g/dL (32.0-36.0) Red Cell Distribution Width 13.5 % (11.8-14.3) Platelet Count 197 10^3/uL (140-450) Mean Platelet Volume 8.8 fL (6.9-10.8) Neutrophils (%) (Auto) 61.5 % (37.0-80.0) Lymphocytes (%) (Auto) 23.0 % (10.0-50.0) Monocytes (%) (Auto) 11.7 % (0.0-12.0) Eosinophils (%) (Auto) 3.3 % (0.0-7.0) Basophils (%) (Auto) 0.5 % (0.0-2.0) Neutrophils # (Auto) 4.3 10 ^3/uL (1.6-8.6) Lymphocytes # (Auto) 1.6 10 ^3/uL (0.4-5.4) Monocytes # (Auto) 0.8 10 ^3/uL (0-1.3) Eosinophils # (Auto) 0.2 10 ^3/uL (0-0.8) Basophils # (Auto) 0 10 ^3/uL (0-0.2) Nucleated Red Blood Cells 0.0 % Sodium Level 135 mmol/L (136-145) Potassium Level 4.0 mmol/L (3.5-5.1) Chloride Level 98 mmol/L (98-107) Carbon Dioxide Level 29 mmol/L (20-31) Anion Gap 8 (5-15) Blood Urea Nitrogen 14 mg/dL (9-23) Creatinine 0.83 mg/dL (0.700-1.30) Glomerular Filtration Rate Calc 105 mL/min (>90) BUN/Creatinine Ratio 16.9 (10.0-20.0) Serum Glucose 215 mg/dL (74-106) Calcium Level 9.7 mg/dL (8.7-10.4) Total Bilirubin 1.0 mg/dL (0.2-1.0) Aspartate Amino Transferase (AST) 14 U/L (13-40) Alanine Aminotransferase (ALT) 19 U/L (7-40) Alkaline Phosphatase 89 U/L (46-116) Total Protein 6.2 g/dL (5.7-8.2) Albumin 3.7 g/dL (3.2-4.8) POC Glucose 221 mg/dl (70-106) Hemoglobin A1c 12.5 % A1C (<5.7) Triglycerides Level 291 mg/dL (< 150) Cholesterol Level 245 mg/dL (< 200) LDL Cholesterol 162 mg/dL (< 100) HDL Cholesterol 39 mg/dL (40-59) Thyroid Stimulating Hormone (TSH) 2.16 uIU/mL (0.55-4.78) Urine Color Light-yellow (Yellow) Urine Clarity Clear (Clear) Urine pH 6.0 (5.0-9.0) Urine Specific [place] 1.037 (1.001-1.035) Urine Protein 2+ (Negative) Urine Ketones 1+ (Negative) Urine Blood Negative /uL (Negative) Urine Nitrite Negative (Negative) Urine Bilirubin Negative (Negative) Urine Urobilinogen Normal mg/dL (Negative) Urine Leukocyte Esterase Negative /uL (Negative) Urine RBC <1 /hpf (0 - 3) Urine Microscopic WBC < 1 /HPF (0-3) Urine Squamous Epithelial Cells None seen /hpf (<5) Urine Bacteria None seen /hpf (None Seen) Urine Glucose 4+ mg/dL (Normal) Test 11/15/24 00:59 11/14/24 23:59 Troponin I High Sensitivity 3 ng/L (</=54) Lactic Acid Level 1.2 mmol/L (0.4-2.0) Lipase 24 U/L (12-53) Other Laboratory Tests 11/17/24 06:29 Brief Hx & Hospital Course: A 54-year-old male with a history of hypertension, COPD, hyperlipidemia, obesity, and previous abdominal surgeries due to diverticulitis and ventral hernia, including colostomy (already reverse), presented to the ED with acute abdominal pain and nausea that began one day prior. Initial evaluation CT scan showed dilated bowel loops and SBO couldnt be rule out, so Gastrografin small bowel series was done, which showed normal small bowel transit time with no acute abnormalities. The patient denied fever, chills, emesis, hematemesis, constipation, diarrhea, or melena. Vital signs were stable throughout hospitalization. The patient was admitted to the medical-surgical unit for monitoring, IV fluids, empiric antibiotics (ceftriaxone and metronidazole), and bowel rest. The patient was also treated for newly diagnosed diabetes mellitus with sliding scale insulin but oral antidiabetics outpatient, and lifestyle modifications were recommended for obesity and hyperlipidemia. Blood pressure control was maintained with amlodipine and lisinopril. The patient demonstrated clinical improvement during hospitalization, with resolution of abdominal symptoms, and tolerated a trial of oral intake before discharge. He was counseled on the importance of dietary modifications, regular follow-ups, and adherence to prescribed medications. Follow-up with a primary care physician and outpatient management of comorbidities were advised. General Appearance: Alert, Oriented X3, Cooperative, No acute distress HEENT: Atraumatic, PERRLA, EOMI Respiratory: Clear to auscultation, Normal air movement Cardiovascular: Regular rate, Normal S1, Normal S2, No murmurs Abdominal: Normal bowel sounds, Soft, No hepatospenomegaly, No masses, Other (Moderate tenderness in epigastric region, oliva positive) Extremities: No clubbing, No cyanosis, No edema, Normal pulses, No tenderness/swelling Skin: No rashes, No breakdown, No significant lesion Neuro: Normal gait, Normal speech, Strength at 5/5 X4 ext, Normal tone, Sensation intact, Cranial nerves 3-12 NL Psych/Mental Status: Mental status NL, Mood NL Case discussed with Dr Llanos Time spent on care 23 min Consults/Reason for consult surgery due to possible SBO Operations or Procedures Procedure: XY SMALL BOWEL SERIES-W GASTROGRA Reason for study/Clinical History: sbo Comparison Study: None available at time of dictation. Technique: Single contrast small bowel series performed. FINDINGS/IMPRESSION: Initial yard demurrage clerk view of the abdomen and pelvis appears demonstrates no acute process. Contrast is identified within the colon by 3.5 hours. This represents a normal small bowel transit time. Exam: CT CT AB PEL WO CON-NO ORAL OR IV History: Diffuse abdominal pain Comparison Study: None available at time of dictation. Technique: Multidetector spiral CT of the abdomen was performed from lung bases to pubic symphysis. Imaging was performed without IV contrast. Axial, coronal and sagittal multiplanar reformats were obtained from the axial data set by the technologist. Radiation Dose : 1. Abdomen/Pelvis: CTDIvol 23 mGy, DLP 1683 mGy*cm. Findings: Evaluation of solid organs is limited due to lack of intravenous contrast use. Lung Bases: No acute or significant lung base finding. Normal heart size. No pleural or pericardial effusion. Liver: The liver is normal in size. No focal lesions. Gallbladder and Biliary Tree: Unremarkable Spleen: Unremarkable Pancreas: The pancreas is grossly normal in appearance. Adrenal Glands: Unremarkable Kidneys: Kidneys are grossly normal without calculi or hydronephrosis. Bladder: Grossly unremarkable for degree of distention. Bowel: The stomach is grossly normal in appearance. Postsurgical changes of the sigmoid colon. Multiple fluid-filled loops of small bowel measuring up to 3.6 cm. No definitive transition point. The appendix is not visualized; however, no secondary findings of acute appendicitis identified. Ascites: Absent Lymphadenopathy: No mesenteric, retroperitoneal or periportal lymphadenopathy. Abdominal Wall and Mesentery: Unremarkable. Vasculature: The visualized abdominal aorta is normal in size and caliber. Evaluation of abdominal and pelvic vessels is limited due to lack of intravenous contrast. Pelvic Organs: Unremarkable Musculoskeletal: No aggressive focal bony lesions, acute fractures or dislocation. IMPRESSION: Multiple distended fluid-filled loops of small bowel measuring up to 3.6 cm without definitive transition point. Findings are concerning for possible small bowel obstruction versus viral enteritis Condition at Discharge: Stable Final Diagnosis/Problems List # Acute abdominal pain to rule out small-bowel obstruction # SBO ruled out # possible acute gastroenteritis # hx of SBO # hx of multiple abdominal hernias s/p colostomy # hx diverticulitis # hypertension # New onset DM type 2 Hba1c 12 # hyperlipidemia # COPD controlled # morbid obesity Discharge Disposition: Home Discharge Instruct/Medications Diet: Consistent carbohydrate, Cardiac 2g Na,low cholest Diet comment: diabetic diet: low fat low sugars low carbs Activity: Light activity Follow Up/Referral: dc clinic Medications: see prescription Discharge Statement: "Patient was advised to return to the ER or call 911 if any headaches, dizziness, shortness of breath, chest pain, abdominal pain, bleeding, fevers, or worsening of medical condition. Patient was counseled about treatment plan, medications, possible side effects, patientverbalized understanding. All questions were answered to the best of my ability. This discharge took greater then 30 minutes in planning, reviewing documentation, counseling the patient, and discussing with other team members." ASSESSMENT ASSESSMENT Assessment acute gastroenteritis newly diagnosed DM SHABBIR DAY RESIDENT Nov 17, 2024 13:36
== END 2024-11-17 12:37 | disposition home or self-care (01) | DRG 392 ==
LOC: EDBD 23:42 → ER 23:42 → OVERFLOW 11-15 10:26 → EAST 11-15 12:06
PROVIDERS: ADMIT Student in an Organized Health Care Education/Training Program; ATTEND Student in an Organized Health Care Education/Training Program
PROC: 0D9670Z Drainage of Stomach with Drainage Device, Via Natural or Artificial Opening (ICD-10-PCS; principal; 2024-11-15)
DX: A08.4 Viral intestinal infection, unspecified (principal); E66.01 Morbid (severe) obesity due to excess calories; J44.9 Chronic obstructive pulmonary disease, unspecified; I10 Essential (primary) hypertension; E78.5 Hyperlipidemia, unspecified; E11.65 Type 2 diabetes mellitus with hyperglycemia; Z88.6 Allergy status to analgesic agent; Z88.5 Allergy status to narcotic agent; Z93.3 Colostomy status; Z90.49 Acquired absence of other specified parts of digestive tract; Z68.37 Body mass index [BMI] 37.0-37.9, adult; Z87.891 Personal history of nicotine dependence; Z79.4 Long term (current) use of insulin
CPT/HCPCS: 36415; 71045; 74176; 74250; 80053; 80061; 81001; 82962; 83036; 83605; 83690; 84443; 84484; 85025; 94640; 96365; 96367; 96375; 96376; G0378; J1815; J2405; J3490